=== PATIENT | female | born 1985 | race Caucasian/White ===

== ENCOUNTER 2019-12-15 04:24 | Inpatient (IN) ==
[2019-12-15] MEDS: Ringers Solution, Lactated 1,000 ML IVC SCH ×2 (00:52→03:06)
[2019-12-15 00:53] LABS: Basophils % 0.3 %; Eosinophils # 0.1 K/mcL (0.0-0.6); Eosinophils % 0.8 %; Hematocrit 40.3 % (35.3-44.9); Immature Granulocytes % 0.4 % (0-4); Lymphocytes # 2.2 K/mcL (0.6-4.6); Lymphocytes % 19.2 %; Mean Corpuscular HGB Conc 34.7 g/dL (31.6-35.5); Mean Corpuscular Volume 92.2 fL (83.0-100.0); Mean Platelet Volume 11.4 fL (9.4-12.4); Monocytes # 0.5 K/mcL (0.0-1.3); Monocytes % 4.4 %; Neutrophils # 8.6 K/mcL (1.6-8.9); Platelet Count 265 K/mcL (140-400); Red Blood Count 4.37 M/mcL (3.82-4.97); Red Cell Distribution Width 13.4 % (11.5-14.5); Segmented Neutrophils % 74.9 %; White Blood Count 11.5 K/mcL (4.3-11.1)
[2019-12-15 01:54] LABS: Rubella IgG Antibody POSITIVE (POSITIVE)
[2019-12-15 02:22] LABS: Hepatitis B Surface Antigen Nonreactive (Nonreactive)
[2019-12-15 02:51] LABS: HIV-1&2 Antibody & p24 Ag Nonreactive (Nonreactive)
[2019-12-15 03:00] LABS: Amphetamine Screen,Urine Positive ng/mL (Cutoff=1000); Barbiturate Screen,Urine Negative ng/mL (Cutoff=200); Benzodiazepines Screen,Urine Negative ng/mL (Cutoff=200); Cannabinoid Screen,Urine Negative ng/mL (Cutoff = 50); Cocaine Screen,Urine Negative ng/mL (Cutoff= 300); Opiate Screen,Urine Negative ng/mL (Cutoff=300); Phencyclidine Screen,Urine Negative ng/mL (Cutoff=25)
[~2019-12-15 04:24] MED LIST: *HR* FentaNYL (PF) 100 MCG/2 ML VIAL IVP PRN; EPHEDrine 50 MG/ML VIAL IVP PRN; Epidural Premix (fent/bupiv) 110 ML EP ONE; Epidural Premix (fent/bupiv) 110 ML EP SCH; Famotidine 20 MG/2 ML VIAL IVP PRN; Lidocaine 1% 20 ML MDV ID PRN; Lidocaine 1% 20 ML MDV INFILT PRN; Metoclopramide 10 MG/2 ML VIAL IVP PRN; Naloxone 0.4 MG/ML INJ IVP PRN; Ondansetron 4 MG/2 ML VIAL IVP PRN; Penicillin G Potassium 2,500,000 UNIT in 0.9 % Sodium Chloride 100 ML IVPB SCH; Penicillin G Potassium 5,000,000 UNIT in 0.9 % Sodium Chloride Mini Bag 100 ML IVPB ONE; Ringers Solution, Lactated 1,000 ML ONE; Ropivacaine/PF 0.2% 20 ML VIAL EP ONE; Ropivacaine/PF 0.2% 20 ML VIAL ONE
[2019-12-15] MEDS ORDERED: Oxytocin 20 units/ LR 1000 mL 20 UNIT/1,000 ML BAG IVC ONE ×2 (05:28→09:27)
[2019-12-15] MEDS ORDERED: Measles/Mumps/Rubella Vacc 0.5 ML VIAL SQ PRN (09:27)
[2019-12-15] MEDS ORDERED: Prenatal Vit/FA 1 EACH TABLET PO SCH (09:27)
[2019-12-15] MEDS ORDERED: Benzocaine/Menthol 56 GM AEROSOL SPRAY TP PRN (09:27)
[2019-12-15] MEDS ORDERED: Oxytocin 20 units/ LR 1000 mL 20 UNIT/1,000 ML BAG IVC SCH (09:27)
[2019-12-15] MEDS ORDERED: Acetaminophen 325 MG TABLET PO PRN (09:27)
[2019-12-15] MEDS: Ibuprofen 600 MG TABLET PO PRN ×2 (10:36→20:28)
[2019-12-16] MEDS: Ibuprofen 600 MG TABLET PO PRN (05:37)
[2019-12-16 08:41] VITALS: BP 112/83
== END 2019-12-16 12:13 | disposition home or self-care (01) | DRG 807 ==
LOC: 1NENULAB → 1NENUOBS 09:22
PROVIDERS: ADMIT Obstetrics & Gynecology; ATTEND Obstetrics & Gynecology